=== PATIENT | male | born 1955 | race Caucasian/White ===

== ENCOUNTER → 2016-11-04 | Outpatient (CLI) | payer OTHER ==
[~2016-11-04] MED LIST: METF500T4 PO; methylPREDNISolone 80 MG/ML (DEPO MEDROL) VIAL IM ONE
--- NOTE | 2016-11-04 14:45 | PAIN MANAGEMENT ---
Date of note: 11/04/2016 PROCEDURE: Epidural steroid injection L5-S1 under fluoroscopy. TOTAL FLUOROSCOPIC EXPOSURE: 62 seconds. This is a 61-year-old patient of Dr. Ricky Durand. Branden presents with a long standing history of lumbar disk disease and lumbar radiculopathy. He is having radicular symptoms at L5 on the left side and if he is up long enough he starts to notice the same thing on the dermatome of L5 on the right side. Informed consent was achieved for epidural steroid injection under fluoroscopy at L5-S1. Orders for procedure verified. Patient denies any bleeding tendencies. After informed consent obtained, the patient was positioned for the lumbar epidural steroid injection. The area was prepped and draped using aseptic technique. The skin and overlying tissues were localized using 3 mL of 1% Preservative-Free lidocaine using a 25-gauge 1.5-inch needle. A 20-gauge Tuohy needle was advanced, using "loss of resistance" technique, to the epidural space. No blood, cerebral spinal fluid, pain, or paresthesia noted on entry of the epidural space. A 1 mL solution of Depo-Medrol 80 mg was injected slowly without mass volume effect. The patient was placed in supine position 15 minutes prior to being released with proper leg strength and vitals. Pre- and post procedure vital signs stable with no sensory or motor deficit noted. Instruction on followup contact and care provided to the patient.
== END ==
LOC: PMC 12:49
PROVIDERS: ATTEND Neurological Surgery
DX: M51.16 Intervertebral disc disorders with radiculopathy, lumbar region (principal)